=== PATIENT | female | born 1970 | race Caucasian/White ===

== ENCOUNTER 2017-08-06 13:59 | Outpatient (CLI) | payer OTHER | END 2017-08-06 14:00 | disposition home or self-care (01) | LOC: BICMAMMO 13:59 | PROVIDERS: ATTEND Obstetrics & Gynecology Gynecologic Oncology | DX: Z12.31 Encounter for screening mammogram for malignant neoplasm of breast (principal) | CPT/HCPCS: 77063; 77067 ==

== ENCOUNTER 2020-08-22 07:51 | Outpatient (CLI) | payer OTHER | END 2020-08-22 07:52 | disposition home or self-care (01) | LOC: BICMAMMO 07:51 | PROVIDERS: ATTEND Family Medicine | DX: Z12.31 Encounter for screening mammogram for malignant neoplasm of breast (principal); Z85.42 Personal history of malignant neoplasm of other parts of uterus | CPT/HCPCS: 77063; 77067 ==

== ENCOUNTER 2025-02-08 14:07 | Outpatient (CLI) | payer OTHER | END 2025-02-08 14:08 | disposition home or self-care (01) | LOC: BICMAMMO 14:07 | PROVIDERS: ATTEND Obstetrics & Gynecology | DX: M81.0 Age-related osteoporosis without current pathological fracture (principal); E89.40 Asymptomatic postprocedural ovarian failure; M85.89 Other specified disorders of bone density and structure, multiple sites | CPT/HCPCS: 77080 ==